=== PATIENT | male | born 1990 | race Caucasian/White ===

== ENCOUNTER → 2017-06-29 | Outpatient (CLI) | payer OTHER ==
--- NOTE | 2017-06-29 09:28 | RAD ---
Scrotal ultrasound, 06/29/2017: History: Testicular mass The right testicle measures 4.6 x 1.8 x 3.2 cm while the left testicle measures 4.2 x 1.8 x 3.2 cm. No testicular mass is seen. There is symmetric blood flow within the testicles. No epididymal abnormality is seen. There is a small amount of fluid in the scrotal sac bilaterally, left greater than right. IMPRESSION: No testicular abnormality is detected.
== END | disposition home or self-care (01) ==
LOC: US 08:31
PROVIDERS: ATTEND Family Medicine
DX: N50.89 Other specified disorders of the male genital organs (principal)
CPT/HCPCS: 76870